=== PATIENT | male | born 1945 | race American Indian/Alaskan Native ===

== ENCOUNTER 2017-07-31 19:01 | Inpatient (IN) | payer MEDICARE, OTHER ==
[2017-07-31 20:27] LABS: Basophils % (Auto) 0.4 % (0.0-1.8); Eosinophils % (Auto) 0.8 % (0.0-4.3); Hematocrit 41.9 % (35.5-45.6); Hemoglobin 13.9 gm/dl (11.8-15.2); Mean Corpuscular HGB Conc 33 % (32-34); Mean Corpuscular Hemoglobin 32 pg (28-32); Mean Corpuscular Volume 95 fl (84-94); Platelet Count 177 K/mm3 (140-440); Red Cell Distribution Width 14.6 % (13.2-15.2); White Blood Count 7.1 K/mm3 (4.5-11.0)
[2017-07-31 20:56] LABS: Anion Gap 19 mmol/L; BUN/Creatinine Ratio 15; Blood Urea Nitrogen 12 mg/dL (9-20); Carbon Dioxide 23 mmol/L (22-30); Chloride 105.8 mmol/L (98-107); Glucose 109 mg/dL (75-100); Potassium 3.9 mmol/L (3.6-5.0); Sodium 144 mmol/L (137-145)
[2017-07-31] MEDS ORDERED: PROVENTIL IH ONE (21:24)
--- NOTE | 2017-07-31 21:43 | Emergency Department Report ---
ED General Adult HPI - General Chief complaint: Dyspnea/Respdistress Stated complaint: BORA Time Seen by Provider: 07/31/17 21:19 Source: patient, EMS Mode of arrival: Stretcher Limitations: No Limitations - History of Present Illness Initial comments: Patient is a 71-year-old male past medical history of asthma exacerbation who presents with shortness of breath. Patient states that his shortness of breath has been getting a lot worse. Patient is not on any oxygen at home. He states that cold weather excision shortness of breath worse nothing makes it better. Patient states that he's been having more productive cough for the last couple days and that it has been nonproductive. He states that his cough is severe. Nothing makes it better or worse. Patient denies having any chest sprain or any leg swelling. Shortness of breath is severe. Patient's O2 sat was hypoxic and he was given oxygen via EMS. Patient is currently 94% on 2 L of nasal cannula. - Related Data Home Medications Medication Instructions Recorded Confirmed Last Taken Lisinopril [Zestril] 25 mg PO DAILY 07/31/17 07/31/17 07/31/17 amLODIPine/VALSARTAN [Exforge 50 mg PO DAILY 07/31/17 07/31/17 07/31/17 10-160 mg Tablet] Allergies Allergy/AdvReac Type Severity Reaction Status Date / Time No Known Allergies Allergy Unverified 07/31/17 19:32 ED Review of Systems ROS: Stated complaint: BORA Other details as noted in HPI Constitutional: denies: chills, fever Eyes: denies: eye pain, eye discharge, vision change ENT: denies: ear pain, throat pain Respiratory: cough, shortness of breath. denies: wheezing Cardiovascular: denies: chest pain, palpitations Endocrine: no symptoms reported Gastrointestinal: denies: abdominal pain, nausea, diarrhea Genitourinary: denies: urgency, dysuria Musculoskeletal: denies: back pain, joint swelling, arthralgia Skin: denies: rash, lesions Neurological: denies: headache, weakness, paresthesias Psychiatric: denies: anxiety, depression Hematological/Lymphatic: denies: easy bleeding, easy bruising ED Past Medical Hx - Past Medical History Previous Medical History?: Yes Hx Hypertension: Yes Additional medical history: Prostate Cancer, Brain Aneurysm 1985 - Surgical History Past Surgical History?: Yes Additional Surgical History: Brain Aneurysm - Social History Smoking Status: Never Smoker Substance Use Type: Prescribed - Medications Home Medications: Home Medications Medication Instructions Recorded Confirmed Last Taken Type Lisinopril [Zestril] 25 mg PO DAILY 07/31/17 07/31/17 07/31/17 History amLODIPine/VALSARTAN [Exforge 50 mg PO DAILY 07/31/17 07/31/17 07/31/17 History 10-160 mg Tablet] ED Physical Exam - General Limitations: No Limitations General appearance: alert, in no apparent distress - Head Head exam: Present: atraumatic, normocephalic - Eye Eye exam: Present: normal appearance - ENT ENT exam: Present: mucous membranes moist - Neck Neck exam: Present: normal inspection - Respiratory Respiratory exam: Present: normal lung sounds bilaterally. Absent: respiratory distress - Cardiovascular Cardiovascular Exam: Present: regular rate, normal rhythm. Absent: systolic murmur, diastolic murmur, rubs, gallop - GI/Abdominal GI/Abdominal exam: Present: soft, normal bowel sounds - Rectal Rectal exam: Present: deferred - Extremities Exam Extremities exam: Present: normal inspection - Back Exam Back exam: Present: normal inspection - Neurological Exam Neurological exam: Present: alert, oriented X3 - Psychiatric Psychiatric exam: Present: normal affect, normal mood - Skin Skin exam: Present: warm, dry, intact, normal color. Absent: rash ED Course Vital Signs 07/31/17 07/31/17 07/31/17 19:27 19:31 19:32 Temperature 98.0 F Pulse Rate 83 65 88 Pulse Rate [ Anterior Bilateral Throughout] Respiratory 24 24 23 Rate Respiratory Rate [Anterior Bilateral Throughout] Blood Pressure 139/93 139/93 Blood Pressure 139/93 [Left] O2 Sat by Pulse 94 94 Oximetry 07/31/17 07/31/17 07/31/17 19:42 19:45 20:00 Temperature Pulse Rate 88 70 64 Pulse Rate [ Anterior Bilateral Throughout] Respiratory 23 22 22 Rate Respiratory Rate [Anterior Bilateral Throughout] Blood Pressure 139/93 131/91 Blood Pressure [Left] O2 Sat by Pulse 94 94 96 Oximetry 07/31/17 07/31/17 07/31/17 20:15 20:49 21:01 Temperature Pulse Rate 85 81 Pulse Rate [ Anterior Bilateral Throughout] Respiratory 22 25 H Rate Respiratory Rate [Anterior Bilateral Throughout] Blood Pressure 131/91 131/91 155/93 Blood Pressure [Left] O2 Sat by Pulse 97 92 96 Oximetry 07/31/17 07/31/17 07/31/17 21:15 22:00 22:02 Temperature Pulse Rate 77 84 Pulse Rate [ 81 Anterior Bilateral Throughout] Respiratory 21 21 Rate Respiratory 18 Rate [Anterior Bilateral Throughout] Blood Pressure 155/93 154/97 Blood Pressure [Left] O2 Sat by Pulse 96 91 Oximetry 07/31/17 07/31/17 07/31/17 22:15 22:27 23:00 Temperature Pulse Rate 78 83 Pulse Rate [ 88 Anterior Bilateral Throughout] Respiratory 19 17 Rate Respiratory 19 Rate [Anterior Bilateral Throughout] Blood Pressure 154/97 163/94 Blood Pressure [Left] O2 Sat by Pulse 98 93 Oximetry 07/31/17 07/31/17 07/31/17 23:08 23:15 23:29 Temperature 98.6 F Pulse Rate 78 92 H 88 Pulse Rate [ Anterior Bilateral Throughout] Respiratory 19 Rate Respiratory Rate [Anterior Bilateral Throughout] Blood Pressure 163/98 163/94 Blood Pressure 140/99 [Left] O2 Sat by Pulse 97 Oximetry ED Medical Decision Making - Lab Data Result diagrams: 07/31/17 20:14 07/31/17 20:14 Lab Results 07/31/17 07/31/17 Range/Units 20:14 20:14 WBC 7.1 (4.5-11.0) K/mm3 RBC 4.40 (3.65-5.03) M/mm3 Hgb 13.9 (11.8-15.2) gm/dl Hct 41.9 (35.5-45.6) % MCV 95 H (84-94) fl MCH 32 (28-32) pg MCHC 33 (32-34) % RDW 14.6 (13.2-15.2) % Plt Count 177 (140-440) K/mm3 Lymph % (Auto) 9.9 L (13.4-35.0) % [place] % (Auto) 4.6 (0.0-7.3) % Eos % (Auto) 0.8 (0.0-4.3) % Baso % (Auto) 0.4 (0.0-1.8) % Lymph # 0.7 L (1.2-5.4) K/mm3 [place] # 0.3 (0.0-0.8) K/mm3 Eos # 0.1 (0.0-0.4) K/mm3 Baso # 0.0 (0.0-0.1) K/mm3 Seg Neutrophils % 84.3 H (40.0-70.0) % Seg Neutrophils # 6.0 (1.8-7.7) K/mm3 Sodium 144 (137-145) mmol/L Potassium 3.9 (3.6-5.0) mmol/L Chloride 105.8 (98-107) mmol/L Carbon Dioxide 23 (22-30) mmol/L Anion Gap 19 mmol/L BUN 12 (9-20) mg/dL Creatinine 0.8 (0.8-1.5) mg/dL Estimated GFR > 60 ml/min BUN/Creatinine Ratio 15 % Glucose 109 H (75-100) mg/dL Calcium 9.0 (8.4-10.2) mg/dL Troponin T < 0.010 (0.00-0.029) ng/mL - EKG Data -: EKG Interpreted by Ca - EKG Data 07/31/17 21:45 EKG shows normal honest with them no ST segment elevation left atrium argument normal axis no T-wave abnormality - Radiology Data Radiology results: image reviewed Chest x-ray x-ray: Shows right pulmonary infiltrate - Medical Decision Making Chief medical diagnosis: Pneumonia Differential medical diagnosis: Asthma exacerbation, pneumothorax, non-STEMI I will get CBC, CMP, EKG, chest x-ray, troponin, abg, albuterol and IV antibiotics Due to patient being still symptomatic and needing 3L of O2 which is different from his baseline he will be admitted to the hospitalist service due to his right pulmonary infiltrate. Patient is currently satting 96% on 3 L nasal cannula. Discussed plan with the patient patient agrees to plan. Discussed plan with hospitalist and hospitalist agrees with plan. Critical care attestation.: If time is entered above; I have spent that time in minutes in the direct care of this critically ill patient, excluding procedure time. ED Disposition Clinical Impression: CAP (community acquired pneumonia) Qualifiers: Laterality: right Lung location: unspecified part of lung Qualified Code(s): J18.9 - Pneumonia, unspecified organism Asthma exacerbation Qualifiers: Asthma severity: severe Asthma persistence: unspecified Qualified Code(s): J45.901 - Unspecified asthma with (acute) exacerbation Disposition: DC-09 OP ADMIT IP TO THIS HOSP Is pt being admited?: Yes Does the pt Need Aspirin: No Condition: Stable
[2017-07-31] MEDS ORDERED: ZITHROMAX 500 MG in NACL 0.9% 250ML 250 ML IV ONE (22:00)
[2017-07-31] MEDS ORDERED: DULCOLAX PR PRN (22:14)
[2017-07-31] MEDS ORDERED: ZOFRAN IV PRN (22:14)
[2017-07-31] MEDS ORDERED: TYLENOL PO PRN (22:14)
[2017-07-31] MEDS ORDERED: PROVENTIL IH PRN (22:14)
[2017-07-31] MEDS ORDERED: MILK OF MAGNESIA PO PRN (22:14)
--- NOTE | 2017-07-31 22:14 | History and Physical Report ---
History of Present Illness Chief complaint: I cant breathe History of present illness: 71 YO Male with Asthma, HTN, CaP, Brain Aneurysm (1985) presents to ED for evaluation. Pt states that he has experienced shortness of breath, and nonproductive cough for the past week with worsening symptoms over the past 2 days. Pt states that symptoms are not responsive to his current medication. Pt seen and evaluated in ED and found to have respiratory distress as well as hypoxemic respiratory failure. Pt treated with supplemental oxygen,nebulizer therapy, Iv steroid therapy. Pt denies fever, chills, CP, Palpitations, NVD, syncope,productive cough, sore throat, prolonged travel/immobility, leg swelling , calf pain, individual/family history of DVT/PE, back pain, recent ill contacts or night sweats. Past History Past Medical History: cancer, hypertension, other (Asthma, ) Past Surgical History: Other (Brain aneurysm.) Social history: , lives with family. denies: smoking Family history: hypertension Medications and Allergies Allergies Allergy/AdvReac Type Severity Reaction Status Date / Time No Known Allergies Allergy Unverified 07/31/17 19:32 Home Medications Medication Instructions Recorded Confirmed Last Taken Type Lisinopril [Zestril] 25 mg PO DAILY 07/31/17 07/31/17 07/31/17 History amLODIPine/VALSARTAN [Exforge 50 mg PO DAILY 07/31/17 07/31/17 07/31/17 History 10-160 mg Tablet] Active Meds: Active Medications Azithromycin 500 mg/ Sodium (Chloride) 250 mls @ 250 mls/hr IV ONCE.ED ONE Stop: 07/31/17 22:59 Review of Systems Constitutional: no weight loss, no weight gain, no fever, no chills, no sweats Ears, nose, mouth and throat: no ear pain, no ear discharge, no tinnitis, no decreased hearing, no nose pain, no nasal congestion, no nasal discharge Cardiovascular: no chest pain, no palpitations, no rapid/irregular heart beat, no edema, no syncope Respiratory: cough, shortness of breath, no cough with sputum, no excessive sputum, no hemoptysis Gastrointestinal: abdominal pain, no vomiting, no diarrhea Genitourinary Male: no hematuria, no flank pain, no discharge, no urinary frequency, no urinary hesitancy Rectal: no pain, no incontinence, no bleeding Musculoskeletal: no neck stiffness, no neck pain, no shooting arm pain, no arm numbness/tingling, no low back pain, no shooting leg pain, no leg numbness/ tingling Integumentary: no rash, no pruritis, no redness, no sores, no wounds, no jaundice Neurological: no head injury, no transient paralysis, no paralysis, no weakness , no parathesias, no numbness, no tingling, no seizures Psychiatric: no anxiety, no memory loss, no change in sleep habits, no sleep disturbances, no insomnia, no hypersomnia, no change in appetite, no change in libido, no suicidal ideation Exam - Constitutional Vitals: Temp Pulse Resp BP Pulse Ox 98.0 F 81 18 155/93 96 07/31/17 19:32 07/31/17 22:02 07/31/17 22:02 07/31/17 21:15 07/31/17 21:15 General appearance: Present: mild distress, obese - EENT Eyes: Present: PERRL ENT: hearing intact, clear oral mucosa - Neck Neck: Present: supple, normal ROM - Respiratory Respiratory effort: labored Respiratory: bilateral: diminished, wheezing - Cardiovascular Rhythm: other (tachycardia) - Extremities Extremities: pulses symmetrical, No edema Peripheral Pulses: within normal limits - Abdominal General gastrointestinal: Present: soft, non-tender, non-distended, normal bowel sounds Male genitourinary: Present: normal - Integumentary Integumentary: Present: clear, warm, dry - Musculoskeletal Musculoskeletal: gait normal, strength equal bilaterally - Psychiatric Psychiatric: appropriate mood/affect, intact judgment & insight - Neurologic Neurologic: CNII-XII intact, moves all extremities Results - Labs CBC & Chem 7: 07/31/17 20:14 07/31/17 20:14 Labs: Abnormal lab results 07/31/17 07/31/17 Range/Units 20:14 20:14 MCV 95 H (84-94) fl Lymph % (Auto) 9.9 L (13.4-35.0) % Lymph # 0.7 L (1.2-5.4) K/mm3 Seg Neutrophils % 84.3 H (40.0-70.0) % Glucose 109 H (75-100) mg/dL Assessment and Plan - Patient Problems (1) Acute respiratory failure Current Visit: Yes Status: Acute Plan to address problem: Supplemental oxygen, nebs, aspiration precautions, supportive care, incentive spirometry, NIPPV as clinically indicated. (2) Asthma exacerbation Current Visit: Yes Status: Acute Qualifiers: Asthma severity: severe Asthma persistence: unspecified Qualified Code(s) : J45.901 - Unspecified asthma with (acute) exacerbation Plan to address problem: Supplemental oxygen, nebs, steroids, IV abx. (3) CAP (community acquired pneumonia) Current Visit: Yes Status: Acute Qualifiers: Laterality: right Lung location: unspecified part of lung Qualified Code( s): J18.9 - Pneumonia, unspecified organism Plan to address problem: Pneumonia protocol: IV abs, Nebulizer therapy, supplemental oxygen, blood cultures, incentive spirometry (4) DVT prophylaxis Current Visit: Yes Status: Acute
[2017-07-31] MEDS ORDERED: MAGNESIUM SULFATE 2GM/50ML 2 GM/50 ML BAG IV ONE (22:15)
[2017-07-31 22:28] LABS: ISTAT Base Excess -3; ISTAT DEVICE 0; ISTAT HCO3 22.4; ISTAT PO2 57 (80-105); ISTAT SO2 89; ISTAT TCO2 23
[2017-07-31] MEDS ORDERED: APRESOLINE IV ONE (23:04)
[2017-07-31] MEDS ORDERED: APRESOLINE ONE (23:07)
--- NOTE | 2017-08-01 00:21 | XRay Report ---
FINAL REPORT EXAM: XR CHEST ROUTINE 2V HISTORY: Shortness of breath COMPARISON: None available. FINDINGS:: Frontal and lateral views of the chest obtained. Heart borderline enlarged. Tortuous course of the thoracic aorta. Hazy interstitial densities at the lung bases and small effusions concerning for congestion. Superimposed pneumonia is not excluded. No pneumothorax. IMPRESSION:: Findings concerning for mild pulmonary edema. Superimposed pneumonia is not excluded.
[2017-08-01] MEDS ORDERED: NACL ONE (01:23)
--- NOTE | 2017-08-01 07:54 | Progress Note ---
Assessment and Plan Assessment and plan: --Acute on chronic respiratory failure; secondary to bronchial asthma exacerbation,Oxygen titrate O2 sats to more than 90%, nebulizers, IV steroids, IV antibiotics, BiPAP as needed --Community-acquired pneumonia; continue Rocephin and Zithromax, follow cultures and supportive care -- congestive heart failure; unknown ejection fraction Gentle diuresis, echocardiogram for left ventricular function and ejection fraction, low-sodium diet, consider cardiology if needed --BPH; continue Flomax --Elevated D dimers; patient is allergic to contrast dye, check VQ scan to rule out PE --DVT prophylaxis; Lovenox --Full code status Monitor the patient and adjust management as needed History Interval history: Patient seen and examined , records reviewed Feels slightly better, still complains of shortness of breath Patient has elevated D dimers, allergic to contrast dye Will check VQ scan Hospitalist Physical - Constitutional Vitals: Temp Pulse Resp BP Pulse Ox 98.6 F 89 20 135/85 96 08/01/17 07:29 08/01/17 07:29 08/01/17 07:29 08/01/17 07:29 08/01/17 07:29 General appearance: Present: mild distress, well-nourished, obese - EENT Eyes: Present: PERRL, EOM intact - Neck Neck: Present: supple, normal ROM - Respiratory Respiratory effort: normal Respiratory: bilateral: diminished, negative: rales, rhonchi, wheezing - Cardiovascular Rhythm: regular Heart Sounds: Present: S1 & S2 - Extremities Extremities: no ischemia, No edema - Abdominal General gastrointestinal: soft, non-tender, non-distended, normal bowel sounds - Integumentary Integumentary: Present: clear, warm - Psychiatric Psychiatric: appropriate mood/affect, cooperative - Neurologic Neurologic: CNII-XII intact, moves all extremities Results - Labs CBC & Chem 7: 08/02/17 03:46 08/02/17 03:46 Labs: Laboratory Last Values WBC 7.1 K/mm3 (4.5-11.0) 07/31/17 20:14 RBC 4.40 M/mm3 (3.65-5.03) 07/31/17 20:14 Hgb 13.9 gm/dl (11.8-15.2) 07/31/17 20:14 Hct 41.9 % (35.5-45.6) 07/31/17 20:14 MCV 95 fl (84-94) H 07/31/17 20:14 MCH 32 pg (28-32) 07/31/17 20:14 MCHC 33 % (32-34) 07/31/17 20:14 RDW 14.6 % (13.2-15.2) 07/31/17 20:14 Plt Count 177 K/mm3 (140-440) 07/31/17 20:14 Lymph % (Auto) 9.9 % (13.4-35.0) L 07/31/17 20:14 [place] % (Auto) 4.6 % (0.0-7.3) 07/31/17 20:14 Eos % (Auto) 0.8 % (0.0-4.3) 07/31/17 20:14 Baso % (Auto) 0.4 % (0.0-1.8) 07/31/17 20:14 Lymph # 0.7 K/mm3 (1.2-5.4) L 07/31/17 20:14 [place] # 0.3 K/mm3 (0.0-0.8) 07/31/17 20:14 Eos # 0.1 K/mm3 (0.0-0.4) 07/31/17 20:14 Baso # 0.0 K/mm3 (0.0-0.1) 07/31/17 20:14 Seg Neutrophils % 84.3 % (40.0-70.0) H 07/31/17 20:14 Seg Neutrophils # 6.0 K/mm3 (1.8-7.7) 07/31/17 20:14 D-Dimer 949.40 ng/mlDDU (0-234) H 07/31/17 22:35 POC ABG pH 7.390 (7.35-7.45) 07/31/17 22:05 POC ABG pCO2 37.0 (35-45) 07/31/17 22:05 POC ABG pO2 57 (80-105) L 07/31/17 22:05 POC ABG HCO3 22.4 07/31/17 22:05 POC ABG Total CO2 23 07/31/17 22:05 POC ABG O2 Sat 89 07/31/17 22:05 POC ABG Base Excess -3 07/31/17 22:05 FiO2 21 % 07/31/17 22:05 Sodium 144 mmol/L (137-145) 07/31/17 20:14 Potassium 3.9 mmol/L (3.6-5.0) 07/31/17 20:14 Chloride 105.8 mmol/L (98-107) 07/31/17 20:14 Carbon Dioxide 23 mmol/L (22-30) 07/31/17 20:14 Anion Gap 19 mmol/L 07/31/17 20:14 BUN 12 mg/dL (9-20) 07/31/17 20:14 Creatinine 0.8 mg/dL (0.8-1.5) 07/31/17 20:14 Estimated GFR > 60 ml/min 07/31/17 20:14 BUN/Creatinine Ratio 15 % 07/31/17 20:14 Glucose 109 mg/dL (75-100) H 07/31/17 20:14 Calcium 9.0 mg/dL (8.4-10.2) 07/31/17 20:14 Troponin T < 0.010 ng/mL (0.00-0.029) 07/31/17 20:14
[2017-08-01] MEDS ORDERED: ZESTRIL PO SCH ×2 (10:00→13:00)
[2017-08-01] MEDS ORDERED: ROCEPHIN/NS 1 GM/50 ML 1 GM/50 ML BAG IV SCH (10:00)
[2017-08-01] MEDS ORDERED: VALSARTAN PO SCH (10:00)
[2017-08-01] MEDS ORDERED: AMLODIPINE PO SCH (10:00)
[2017-08-01] MEDS: FLOMAX PO SCH (10:38)
[2017-08-01] MEDS: cefTRIAXone 1 GM in NACL 0.9% 20 ML IV SCH (10:42)
[2017-08-01] MEDS ORDERED: Fluarix Quad 2017-2018(36 MOS+ IM ONE (12:00)
[2017-08-01] MEDS: ZESTRIL PO SCH (12:37)
--- NOTE | 2017-08-01 16:12 | Event Note ---
Date: 08/01/17 Pt. off floor for a procedure when I came by. Will see him in AM.
--- NOTE | 2017-08-01 16:58 | Nuclear Medicine Report ---
FINAL REPORT PROCEDURE: NM LUNG SCAN PERF/VENT TECHNIQUE: Consent was obtained. 5 millicuries technetium 99 MAA was administered IV and multiplanar perfusion images of the lungs acquired. 15 millicurie xenon 133 gas was inhaled and planar ventilatory images were performed. HISTORY: elevated d dimers/SOB,evaluate PE COMPARISON: Chest two views 07/31/2017 FINDINGS: Mild heterogeneity of radiotracer uptake on ventilation and perfusion is possibly related to an element of COPD. There is no mismatched perfusion defect to suggest pulmonary infarct. There is no central clumping of radiotracer. The heart is top-normal to mildly enlarged in size. IMPRESSION: Low probability for pulmonary embolism. Heterogeneity of radiotracer possibly reflective of an element of underlying COPD. Heart size top-normal to mildly enlarged.
[2017-08-01] MEDS ORDERED: ZITHROMAX 500 MG in NACL 0.9% 250ML 250 ML IV SCH (22:00)
[2017-08-02 05:06] LABS: Hematocrit 39.8 % (35.5-45.6); Hemoglobin 13.3 gm/dl (11.8-15.2); Mean Corpuscular HGB Conc 34 % (32-34); Mean Corpuscular Hemoglobin 32 pg (28-32); Mean Corpuscular Volume 95 fl (84-94); Platelet Count 182 K/mm3 (140-440); Red Blood Count 4.19 M/mm3 (3.65-5.03); Red Cell Distribution Width 14.3 % (13.2-15.2)
[2017-08-02 05:21] LABS: Anion Gap 17 mmol/L; BUN/Creatinine Ratio 18; Blood Urea Nitrogen 16 mg/dL (9-20); Calcium 9.2 mg/dL (8.4-10.2); Carbon Dioxide 25 mmol/L (22-30); Chloride 104.6 mmol/L (98-107); Glucose 118 mg/dL (75-100); Potassium 4.5 mmol/L (3.6-5.0); Sodium 142 mmol/L (137-145)
[2017-08-02 05:41] LABS: Basophils % (Manual) 0 % (0.0-1.8); Blastocytes % (Manual) 0 %; Eosinophils % (Manual) 0 % (0.0-4.3)
[2017-08-02 05:42] LABS: Anisocytosis 1+; Diff Status Complete; Ovalocytes 1+
[2017-08-02] MEDS ORDERED: LASIX IV SCH (06:00)
[2017-08-02] MEDS: NORVASC PO SCH ×2 (08:57→10:00)
[2017-08-02] MEDS: DIOVAN PO SCH ×2 (08:58→10:00)
[2017-08-02] MEDS: ZESTRIL PO SCH (08:59)
[2017-08-02] MEDS: FLOMAX PO SCH (08:59)
[2017-08-02 14:00] VITALS: BP 145/87
--- NOTE | 2017-08-02 14:00 | Consultation ---
History of Present Illness Consult date: 08/02/17 Requesting physician: MAGALI RASHID Reason for consult: dyspnea History of present illness: 71 yo with remote hx of asthma for which he takes no meds now, developed 3 days of increased SOB, wheezing, some orthopnea, dry cough, and PND. He denies sputum , chest pain, hemoptysis, LE edema, fevers, chills. Feeling much better, on RA. Active Medications Acetaminophen (Tylenol) 650 mg PO Q4H PRN PRN Reason: Pain MILD(1-3)/Fever >100.5/PACHECO Albuterol (Proventil) 2.5 mg IH Q4HRT PRN PRN Reason: Shortness Of Breath Amlodipine Besylate (Norvasc) 10 mg PO DAILY [facility] Last Admin: 08/02/17 10:00 Dose: Not Given Azithromycin (Zithromax) 500 mg PO QHS TOO Bisacodyl (Dulcolax) 10 mg [place] QDAY PRN PRN Reason: Constipation unrelieved by MOM Furosemide (Lasix) 40 mg IV QDAY@0600 [facility] Last Admin: 08/02/17 06:23 Dose: 40 mg Ceftriaxone Sodium 1 gm/ (Sodium Chloride) 20 mls @ 20 mls/10 min IV Q24HR [facility] Last Admin: 08/01/17 10:42 Dose: 20 mls/10 min Lisinopril (Zestril) 20 mg PO QDAY [facility] Last Admin: 08/02/17 08:59 Dose: 20 mg Magnesium Hydroxide (Milk Of Magnesia) 30 ml PO Q4H PRN PRN Reason: Constipation Ondansetron HCl (Zofran) 4 mg IV Q8H PRN PRN Reason: N/V unrelieved by Reglan Tamsulosin HCl (Flomax) 0.4 mg PO QDAY [facility] Last Admin: 08/02/17 08:59 Dose: 0.4 mg Valsartan (Diovan) 160 mg PO QDAY [facility] Last Admin: 08/02/17 10:00 Dose: Not Given Past History Past Medical History: cancer (prostate), hypertension, other (Asthma, mild intermittent) Past Surgical History: Other (Brain aneurysm.) Social history: , lives with family, full code. denies: smoking, alcohol abuse, prescription drug abuse, IV drug use Family history: hypertension Medications and Allergies Allergies Allergy/AdvReac Type Severity Reaction Status Date / Time No Known Allergies Allergy Verified 08/01/17 07:51 Home Medications Medication Instructions Recorded Confirmed Last Taken Type Lisinopril [Zestril] 25 mg PO DAILY 07/31/17 07/31/17 07/31/17 History amLODIPine/VALSARTAN [Exforge 50 mg PO DAILY 07/31/17 07/31/17 07/31/17 History 10-160 mg Tablet] Flomax 100 cap PO DAILY 08/01/17 08/01/17 Unknown History Active Meds: Active Medications Acetaminophen (Tylenol) 650 mg PO Q4H PRN PRN Reason: Pain MILD(1-3)/Fever >100.5/PACHECO Albuterol (Proventil) 2.5 mg IH Q4HRT PRN PRN Reason: Shortness Of Breath Amlodipine Besylate (Norvasc) 10 mg PO DAILY [facility] Last Admin: 08/02/17 10:00 Dose: Not Given Azithromycin (Zithromax) 500 mg PO QHS [facility] Bisacodyl (Dulcolax) 10 mg [place] QDAY PRN PRN Reason: Constipation unrelieved by MOM Furosemide (Lasix) 40 mg IV QDAY@0600 [facility] Last Admin: 08/02/17 06:23 Dose: 40 mg Ceftriaxone Sodium 1 gm/ (Sodium Chloride) 20 mls @ 20 mls/10 min IV Q24HR [facility] Last Admin: 08/01/17 10:42 Dose: 20 mls/10 min Lisinopril (Zestril) 20 mg PO QDAY [facility] Last Admin: 08/02/17 08:59 Dose: 20 mg Magnesium Hydroxide (Milk Of Magnesia) 30 ml PO Q4H PRN PRN Reason: Constipation Ondansetron HCl (Zofran) 4 mg IV Q8H PRN PRN Reason: N/V unrelieved by Reglan Tamsulosin HCl (Flomax) 0.4 mg PO QDAY [facility] Last Admin: 08/02/17 08:59 Dose: 0.4 mg Valsartan (Diovan) 160 mg PO QDAY [facility] Last Admin: 08/02/17 10:00 Dose: Not Given Review of Systems All systems: negative Physical Examination Vital signs: Vital Signs Pulse Resp 83 24 07/31/17 19:27 07/31/17 19:27 General appearance: no acute distress, alert Eyes: non-icteric ENT: oropharynx moist Neck: supple Effort: normal Ascultation: Bilateral: clear Cardiovascular: regular rate and rhythm (no mrg) Gastrointestinal: normoactive bowel sounds, soft, non-tender, non-distended Integumentary: normal Extremities: no cyanosis, no edema, pink and warm Musculoskeletal: no deformities normal mental status, non-focal exam, pupils equal and round, CN II-XII normal mood appropriate, affect normal Results - Laboratory Findings CBC and BMP: 08/02/17 03:46 08/02/17 03:46 ABG POC ABG pH 7.390 (7.35-7.45) 07/31/17 22:05 POC ABG pCO2 37.0 (35-45) 07/31/17 22:05 POC ABG pO2 57 (80-105) L 07/31/17 22:05 POC ABG HCO3 22.4 07/31/17 22:05 POC ABG Total CO2 23 07/31/17 22:05 POC ABG O2 Sat 89 07/31/17 22:05 PT/INR, D-dimer D-Dimer 949.40 ng/mlDDU (0-234) H 07/31/17 22:35 Abnormal lab findings: Abnormal Labs 07/31/17 07/31/17 07/31/17 20:14 20:14 22:05 MCV 95 H Lymph % (Auto) 9.9 L Lymph # 0.7 L Seg Neutrophils % 84.3 H Seg Neuts % (Manual) Lymphocytes % (Manual) Seg Neutrophils # Man Lymphocytes # (Manual) D-Dimer POC ABG pO2 57 L Glucose 109 H POC Glucose 07/31/17 08/01/17 08/01/17 22:35 07:32 11:46 MCV Lymph % (Auto) Lymph # Seg Neutrophils % Seg Neuts % (Manual) Lymphocytes % (Manual) Seg Neutrophils # Man Lymphocytes # (Manual) D-Dimer 949.40 H POC ABG pO2 Glucose POC Glucose 122 H 136 H 08/01/17 08/02/17 08/02/17 16:56 03:46 03:46 MCV 95 H Lymph % (Auto) Lymph # Seg Neutrophils % Seg Neuts % (Manual) 92.0 H Lymphocytes % (Manual) 7.0 L Seg Neutrophils # Man 10.1 H Lymphocytes # (Manual) 0.8 L D-Dimer POC ABG pO2 Glucose 118 H POC Glucose 108 H - Diagnostic Findings Chest x-ray: report reviewed, image reviewed (pulm edema versus pneumonia) Assessment and Plan Imp: 1. Pulm edema versus CAP, the former is more likely 2. Acute respiratory failure, hypoxia 3. Obesity, non-morbid 4. Essential HTN Rec: 1. No evidence of VTE; CTA chest not needed 2. Cont. Lasix, Rocephin, Azithro pending Echo results; if Echo completely normal could finish 10 days of PO ABX and f/u at [facility] for repeat CXR; if Echo is significantly abnormal recommend cardiology evaluation prior to d/c 3. No wheezing now; doubt asthma exac.; stop steroids 4. He wants to f/u at [facility]; he needs a f/u CXR to ensure improvement in infiltrates, he understands 5. Optimize BP control Plan of care reviewed with patient/family, they understand/agree Thanks kindly for the consult. Will follow.
[2017-08-02] MEDS: cefTRIAXone 1 GM in NACL 0.9% 20 ML IV SCH (15:12)
--- NOTE | 2017-08-02 15:19 | Discharge Summary ---
Providers - Providers Date of Admission: 07/31/17 22:14 Date of discharge: 08/02/17 Attending physician: MAGALI RASHID 08/01/17 17:15 Consult to Physician [CONS] Routine Consulting Provider: ANGELICA WELCH Reason For Exam: acute resp distress Place consult to:: answering service Notified:: yes Phone number called:: [phone] If yes, spoke with:: davidson Time called:: 17:20 Comment:: katie Primary care physician: [facility] Hospitalization Reason for admission: worsening shortness of breath Condition: Stable Pertinent studies: VQ scan; no productivity for PE Extremity venous Doppler; negative DVT Echocardiogram; left ventricular ejection fraction 20% to 25% Chest x-ray; mild pulmonary edema, superimposed pneumonia is not excluded Hospital course: 71-year-old male patient with multiple medical problems as mentioned below who was admitted to the emergency room with worsening shortness of breath of 2 days duration, Admitted to the hospital symptomatically managed, Symptoms significantly improved today's comfortable no new complaints vital signs stable Wqan-ey-inty evaluation physical examination done by me. Her discharge did not show new changes Hemodynamically and clinically stable for discharge Advised to follow with [place] primary care physician and book publisher as scheduled Discharge diagnosis: --New onset cardiomyopathy ejection fraction 20-25% Patient needs further evaluation, heart Catheterization to rule out ischemic cardiomyopathy, refused cardiology evaluation wants to see [facility] book publisher for further evaluation and management, Advised Lasix, KCl, Coreg, MARY inhibitor, low-sodium diet, water restriction --Acute on chronic respiratory failure; secondary to bronchial asthma exacerbation,Oxygen titrate O2 sats to more than 90%, nebulizers, IV steroids, --Community-acquired pneumonia; continue Rocephin and Zithromax, follow cultures and supportive care -- congestive heart failure; ejection fraction 20% --BPH; continue Flomax --Elevated D dimers; negative PE and negative DVT Disposition: TO HOME OR SELFCARE Time spent for discharge: 32 min Core Measure Documentation - Palliative Care Palliative Care/ Comfort Measures: Not Applicable - Core Measures Any of the following diagnoses?: heart failure - Heart Failure Discharge Requirements MARY/ARB for LVSD if EF <40%: Yes Beta suzanne at discharge: Yes Exam - Constitutional Vitals: Temp Pulse Resp BP Pulse Ox 99.2 F 53 L 20 145/87 95 08/02/17 13:46 08/02/17 13:46 08/02/17 13:46 08/02/17 13:46 08/02/17 13:46 General appearance: Present: no acute distress, well-nourished, obese - EENT Eyes: Present: PERRL, EOM intact - Neck Neck: Present: supple, normal ROM - Respiratory Respiratory effort: normal Respiratory: bilateral: diminished, rales, negative: rhonchi, wheezing - Cardiovascular Rhythm: regular Heart Sounds: Present: S1 & S2 - Extremities Extremities: no ischemia, No edema - Abdominal General gastrointestinal: Present: soft, non-tender, non-distended, normal bowel sounds - Integumentary Integumentary: Present: clear, warm - Musculoskeletal Musculoskeletal: strength equal bilaterally - Psychiatric Psychiatric: appropriate mood/affect, cooperative - Neurologic Neurologic: CNII-XII intact, moves all extremities Plan Activity: advance as tolerated Diet: low salt, other (cardiac diet) Special Instructions: restrict fluid intake to (< 1000 ml/24 hrs) Additional Instructions: [facility] 2-3 days. [facility] book publisher ANASTASIIA for further evaluation of severe acute systolic congestive heart failure ejection fraction of 20-25%. Follow up with: PRIMARY CARE, [Primary Care Provider] - 3-5 Days Prescriptions: ALBUTEROL Inhaler [ProAir HFA Inhaler] 1 puff IH QID PRN #1 inha PRN Reason: Shortness Of Breath Carvedilol [Coreg] 6.25 mg PO BID #60 tablet Furosemide [Lasix TAB] 40 mg PO QDAY #30 tablet Levofloxacin [Levaquin TAB] 500 mg PO QDAY #7 tablet Lisinopril [Zestril] 25 mg PO DAILY #20 tablet Potassium Chloride 10 meq PO QDAY #30 capsule.er
[2017-08-02] MEDS ORDERED: ZITHROMAX PO SCH (22:00)
[2017-08-02] MEDS ORDERED: COREG PO SCH (22:00)
--- NOTE | 2017-08-05 07:32 | Vascular Lab Report ---
LOWER EXTREMITY VENOUS DUPLEX: REASON FOR EXAM: Elevated d-dimer. COMMENTS ON THE RIGHT: All veins visualized are freely compressible without evidence of internal echogenicity. Flow is spontaneous and phasic throughout. COMMENTS ON THE LEFT: All veins visualized are freely compressible without evidence of internal echogenicity. Flow is spontaneous and phasic throughout. IMPRESSION: No evidence of acute or chronic deep venous thrombosis in either lower extremity.
== END 2017-08-02 17:07 | disposition home or self-care (01) | DRG 193 ==
LOC: ED 19:01 → 2B-ACE 22:14
PROVIDERS: ADMIT Internal Medicine; ATTEND Internal Medicine
PROC: 4A033R1 Measurement of Arterial Saturation, Peripheral, Percutaneous Approach (ICD-10-PCS; 2017-07-31)
PROC: 3E0234Z Introduction of Serum, Toxoid and Vaccine into Muscle, Percutaneous Approach (ICD-10-PCS; principal; 2017-08-01)
DX: J18.9 Pneumonia, unspecified organism (principal); J96.01 Acute respiratory failure with hypoxia; J45.901 Unspecified asthma with (acute) exacerbation; I50.9 Heart failure, unspecified; I11.0 Hypertensive heart disease with heart failure; N40.0 Benign prostatic hyperplasia without lower urinary tract symptoms; E66.9 Obesity, unspecified; I25.5 Ischemic cardiomyopathy; Z23 Encounter for immunization; Z79.899 Other long term (current) drug therapy; Z85.46 Personal history of malignant neoplasm of prostate; Z82.49 Family history of ischemic heart disease and other diseases of the circulatory system; Z68.33 Body mass index [BMI] 33.0-33.9, adult
CPT/HCPCS: 36415; 71020; 78582; 80048; 82803; 82962; 84484; 85007; 85025; 85379; 90471; 90686; 93005; 93010; 93306; 93970; 94640; 94760; 96365; 96375; A9540; A9558; G0008; J0360; J0456; J0696; J1940; J2920; J3475; J7050